=== PATIENT | female | born 2000 | race Hispanic/Latino ===

== ENCOUNTER 2021-02-12 14:39 | Emergency (ER) | payer BC ==
[~2021-02-12] VITALS: Ht 157.5 cm; Wt 72.6 kg
[2021-02-12 15:57] VITALS: BP 131/77
--- NOTE | 2021-02-12 16:13 | ER.PDOC ---
General Chief Complaint: Requesting Medical Care Stated Complaint: PELVIC CRAMPS TRAVEL OUT OF US: No Time seen by MD: 16:09 Source: patient Exam Limitations: no limitations History of Present Illness Initial Comments Patient had pelvic cramps a few days ago. No pain today. She took multiple tests which were inconclusive at home. She is here requesting for a test to ascertain if she is . No nausea, vomiting or diarrhea. Severity: mild Associated Symptoms: denies symptoms Past Medical History Medical History: other (RA) Family History Significant Family History: no pertinent family hx Social History Smoking: non-smoker Alcohol Use: none Drug Use: none Review of Systems Constitutional: no symptoms reported EENTM: no symptoms reported Respiratory: no symptoms reported Cardiovascular: no symptoms reported Gastrointestinal: see HPI All Other Systems: Reviewed and Negative Physical Exam General Appearance: No Apparent Distress Neck: Non-Tender, Full Range of Motion, Supple, Normal Inspection Respiratory: chest non-tender, lungs clear, normal breath sounds, no respiratory distress, no accessory muscle use CVS: reg rate & rhythm, no murmur, no gallop, pulses nml, nml capillary refill Gastrointestinal: Normal Bowel Sounds, No Organomegaly, No Pulsatile Mass, Non Tender Back: Normal Inspection, No CVA Tenderness, No Vertebral Tenderness Extremities: Normal Range of Motion, Non-Tender, Normal Inspection, No Pedal Edema, No Calf Tenderness Neurologic/Psychiatric: steward/stewardess third class II-XII NML as Tested, No Motor/Sensory Deficits, Alert, Normal Mood/Affect, Oriented x 3 Skin: Normal Color Results/Orders Results/Orders Orders - MAT RAMOS MD Urinalysis (02/12/21 16:06) Hcg Urine (02/12/21 16:06) Laboratory Tests Test 02/12/21 16:00 Urine Collection Type CCMS Urine Color YELLOW Urine Appearance CLEAR Urine Bilirubin NEGATIVE (NEGATIVE) Urine Ketones NEGATIVE (NEGATIVE) Urine Specific [place] >=1.030 (1.005-1.030) Urine pH 6.5 (4.5-8.0) Urine Protein NEGATIVE (NEGATIVE) Urine Urobilinogen 1.0 E.U./dL (0.2) Urine Nitrate NEGATIVE (NEGATIVE) Urine Leukocyte Esterase NEGATIVE (NEGATIVE) Urine Glucose (Auto)(UA) NEGATIVE (NEGATIVE) Urine Blood NEGATIVE (NEGATIVE) Urine HCG, Qualitative NEGATIVE (NEGATIVE) Progress Progress test is negative. Patient refused labs. She told me that she is feeling fine and has no cramps right now. She just wanted to make sure she is not . ER DEPART Departure Time of Disposition: 16:30 Disposition: 01 HOME / SELF CARE / HOMELESS Impression: Primary Impression: Pelvic pain Condition: Improved Referrals: PCP,UNKNOWN (PCP) PRIMARY CARE PROVIDER Additional Instructions: F/U with your PCP as needed Return to ED if worsening or concerns Duration or Time Spent with Pa: 10 min MAT RAMOS MD Feb 12, 2021 16:13
[2021-02-12 16:23] LABS: BILIRUBIN,URINE NEGATIVE (NEGATIVE)
[2021-02-12 16:45] VITALS: BP 135/75
[2021-02-12 17:04] VITALS: BP 131/77
== END 2021-02-12 16:45 | disposition home or self-care (01) ==
LOC: ER 14:39
DX: R10.2 Pelvic and perineal pain (principal)
CPT/HCPCS: 81003; 81025; 99283